=== PATIENT | male | born 1970 | race African-American/Black ===

== ENCOUNTER 2017-09-26 03:15 | Emergency (ER) | payer MEDICAID ==
[~2017-09-26] VITALS: Ht 177.8 cm; Wt 102.1 kg
[2017-09-26 03:29] VITALS: BP 133/87
--- NOTE | 2017-09-26 03:32 | NUR ---
PT TAKEN TO BED 10
--- NOTE | 2017-09-26 03:36 | NUR ---
47Y M BIB SELF C/O BACK PAIN, S/P FALL LAST NIGHT FROM WHEELCHAIR. PT STATES HE LANDED ON HIS BACK. PT STATES PAIN IS 9/10, CONSTANT. 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
--- NOTE | 2017-09-26 03:39 | NUR ---
Dr. Norton evaluating patient.
[2017-09-26] MEDS ORDERED: KETOROLAC 30 MG/ML VIAL IVP ONE (03:50)
[2017-09-26 03:58] LABS: BASOPHILS # (AUTO) 0.2 K/uL (0.00-0.22); BASOPHILS % (AUTO) 3.6 % (0.0-2.0); EOSINOPHILS # (AUTO) 0.1 K/uL (0-0.4); HEMATOCRIT 41.4 % (36-52); HEMOGLOBIN 13.4 g/dL (12.0-18.0); LYMPHOCYTES # (AUTO) 0.6 K/uL (2.0-11.5); LYMPHOCYTES % (AUTO) 13.1 % (20.5-51.1); MEAN CORPUSCULAR HEMOGLOBIN 29 pg (27-31); MEAN CORPUSCULAR HGB CONC 32 g/dL (33-37); MEAN CORPUSCULAR VOLUME 89.4 fL (80-94); MONOCYTES # (AUTO) 0.1 K/uL (0.8-1.0); MONOCYTES % (AUTO) 2.6 % (1.7-9.3); NEUTROPHILS # (AUTO) 3.6 K/uL (1.8-7.7); NEUTROPHILS % (AUTO) 77.7 % (42.2-75.2); PLATELET COUNT (AUTO) 232 K/uL (140-450); RED BLOOD CELL COUNT(AUTO) 4.63 MIL/uL (4.20-6.10); RED CELL DISTRIBUTION WIDTH 13.6 % (11.6-13.7); WHITE BLOOD COUNT (AUTO) 4.6 K/uL (4.8-10.8)
--- NOTE | 2017-09-26 04:08 | NUR ---
PT GIVEN URINAL, AT BEDSIDE BUT STATES HE CANNOT URINATE AT THE MOMENT BUT WILL ATTEMPT AGAIN IN A LITTLE. ER MD DR VELA MADE AWARE
[2017-09-26 05:18] LABS: APPEARANCE,URINE CLEAR (CLEAR); BILIRUBIN,URINE NEGATIVE (NEGATIVE); BLOOD, URINE TRACE-I (NEGATIVE); COLOR,URINE YELLOW (YELLOW); LEUKOCYTE ESTERASE ,URINE NEGATIVE (NEGATIVE); NITRITE, URINE NEGATIVE (NEGATIVE); UGLUCOSE NEGATIVE (NEGATIVE)
[2017-09-26 05:37] LABS: RBC,URINE 3-10 (FEW) /HPF (0-5); WBC,URINE 0-5 (RARE) /HPF (0-5)
--- NOTE | 2017-09-26 07:05 | NUR ---
Pt report given to VICKY Barajas Transfer of care at this time.
[2017-09-26 09:15] LABS: ANION GAP 9.2 (8-16); CARBON DIOXIDE 26.5 mmol/L (21-32); CHLORIDE 105 mmol/L (98-107); GFR ARICAN-AMERICAN 104 mL/min (>90); GLUCOSE 92 mg/dL (74-106); POTASSIUM 3.7 mmol/L (3.5-5.1); SODIUM SERUM 137 mmol/L (136-145); TOTAL BILIRUBIN 0.2 mg/dL (0.0-1.0); UREA NITROGEN, BLOOD 12 mg/dL (7-18)
[2017-09-26 09:16] LABS: ALBUMIN 3.5 g/dL (3.4-5.0); ASPARTATE AMINOTRANSFERASE 20 U/L (15-37)
[2017-09-26 09:17] LABS: ACETAMINOPHEN < 0.5 ug/ml (10-30); SALICYLATE < 2.8 mg/dL (2.8-20.0)
[2017-09-26 09:18] LABS: BARBITURATE, URINE NEGATIVE ng/ml (NEG <=200); BENZODIAZEPINE, URINE NEGATIVE ng/mL (NEG <=200); CANNABINOID, URINE NEGATIVE ng/mL (NEG <=50); COCAINE, URINE POSITIVE ng/mL (NEG <=300); OPIATE, URINE NEGATIVE ng/mL (NEG <=2000); PHENCYCLIDINE SCREEN,URINE NEGATIVE ng/mL (NEG <=25)
[2017-09-26 09:41] VITALS: BP 133/87
== END 2017-09-26 09:41 | disposition home or self-care (01) ==
LOC: MED 03:15
DX: R55 Syncope and collapse (principal); M54.5 Low back pain; Z86.73 Personal history of transient ischemic attack (TIA), and cerebral infarction without residual deficits
CPT/HCPCS: 36415; 70450; 71045; 72100; 80053; 80305; 81001; 82550; 82948; 84484; 85025; 93005; 96374; 99285; G0480; G0482; J1885